=== PATIENT | male | born 2000 | race Caucasian/White ===

== ENCOUNTER 2025-04-06 08:16 | Emergency (ER) | payer BC, SELFPAY ==
--- OUTSIDE RECORDS SUMMARY | 2025-04-06 08:18 | XMS_ITS | Referral Summary ---
Author Organization [facility] Address [address] [place] [id number] Care Team Providers Care Machine Setter Supervisor Name Role Phone Flip Villa MD Primary Care Provider [phone] Allergies Active Allergy Reactions Criticality Noted Date Comments Penicillins Medications triamcinolone (KENALOG) 0.1 % creamIndication s:Contact dermatitis due to plant Apply topically 2 (two) times a day for 14 days 45 g 1 3 Active clobetasoL (TEMOVATE) 0.05 % creamIndication s:Irritant contact dermatitis due to plants, except food Apply topically 2 (two) times a day 60 g 4 Active Active Problems Problem Noted Date Diagnosed Date Acute sinusitis 02/04/2023 02/04/2023 Increased body mass index 02/04/20232022 Infected insect bite 02/04/2023 02/04/2023 Marijuana smoker, continuous 07/19/2019 Encounter for annual health examination 07/19/20 19 Dyspepsia 07/19/2019 Assessment & Plan (07/19/2019 3:49 PM CDT): Overall Condition: New Acute Problem Treatment: New Medication: Omeprazole Follow up PRN Consider for two weeks and then stop. Recommended extensive dietory changes. If symptoms persist, follow up. Generalized anxiety disorder 07/19/2019 Assessment & Plan (07/19/2019 3:51 PM CDT): Overall Condition New Diagnosis. Treatment: Referral: Clinical Psychologist: Patient to explore counselling at [facility] and followup. 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 Gender Identity Not on file Sexual Orientation Not on file Last Filed Vital Signs Vital Sign [place] Time Taken Comments Blood Pressure 104/76 01/04/2024 2:20 PM CDT Pulse 76 01/04/2024 2:20 PM CDT Temperature 36.4 C (97.5 F) 01/04/2024 2:20 PM CDT Respiratory Rate 14 01/04/2024 2:20 PM CDT Oxygen Saturation 99% 01/04/2024 2:20 PM CDT Inhaled Oxygen Concentration - - Weight 100.7 kg (222 lb) 01/04/2024 2:20 PM CDT Height 185.4 cm (6' 1) 01/04/2024 2:20 PM CDT Body Mass Index 29.29 01/04/2024 2:20 PM CDT Plan of Treatment Not on file Insurance [facility] CHOICE PLUS Care Teams Machine Setter Supervisor Relationship Specialty Start Date End Date Flip Villa MD PCP - General Family Medicine 07/19/19
--- OUTSIDE RECORDS SUMMARY | 2025-04-06 08:18 | XMS_ITS | Clinical Summary ---
Author Organization [facility] Address [address] [place] [id number] Care Team Providers Care Break Up Worker Name Role Phone Flip Villa MD Primary Care Provider [phone] Allergies Active Allergy Reactions Criticality Noted Date [...] Clinical Psychologist: Patient to explore counselling at [facility] and followup. and Recommended Therapeutic Lifestyle Modification Follow up in 1 month Family History Medical History Relation Name Comments Cancer Other 1 Family history of Cancer; Hypertension Other 2 Family history of Hypertension; Relation Name Status Comments Father Alive Mother Alive Other 1 Other 2 Social History Tobacco Use Types Packs/Day Years Used Date Smoking Tobacco: Every Day Cigarettes Smokeless Tobacco: Never Alcohol Use Standard Drinks/Week Comments Yes 0 (1 standard drink = 0.6 oz pur e alcohol) PHQ-2 Answer Date Recorded PHQ-2 Score 0 07/19/2019 Sex and Gender Information Value Date Recorded Sex Assigned at Not on file Legal 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 Gender Identity Not on file Sexual Orientation Not on file Obstetrics History Last Filed Vital Signs Vital Sign Reading [...] 01/04/2024 2:20 PM CDT Plan of Treatment Health Maintenance Due Date Last Done Comments Hepatitis C Screening 1998 Pneumococcal vaccine <65 (1 of 2 - PCV) 2017 DTaP/Tdap/Td Vaccine (7 - Td or Tdap) 04/21/2020 04/21/2010, 07/03/2002, 09/15/1999, Additional history exists Depression Screening 07/19/2020 07/19/2019 Regular Well Visit/Exam 18-64 07/19/2020 07/19/2019 Influenza Vaccine (#1) 2025 6, 09/21/2012, 06/29/2011, Additional history exists Hepatitis B Screening Completed 1998 , 1998, 1998 Varicella Vaccines Completed 04/21/2010, 06/18/1999 HPV Vaccines Completed 09/21/2012, 04/26, 03/09/2012 Insurance [facility] CHOICE PLUS Care Teams Break Up Worker Relationship Specialty Start Date End Date Flip Villa MD PCP - General Family Medicine 07/19/19
--- OUTSIDE RECORDS SUMMARY | 2025-04-06 08:18 | XMS_ITS | Clinical Summary ---
Author Organization [facility] Address [address] [place] [address] Phone Care Team Providers Care Bioinformatics Specialist Name Role Phone Jessica Wang PAC Primary Care Pro vider Hermelinda Figueredo APRN, PREPARATION CENTER COORDINATOR Unavailable Allergies Active Allergy Reactions Criticality Noted Date Comments Penicillin G Unknown 07/22/2019 As a child Medications Multiple Vitamin (MULTI-VITAMIN PO) Take by mouth. Active omeprazole (PriLOSEC) 20 MG CAPSULE DELAYED RELEASE Take 1 Capsule by mouth daily. 60 Capsule 2 04/04/2024 Active Active Problems No known active problems Family History Medical History Relation Name Comments Hypertension Father Hypertension Mother Cancer Paternal Grandfather Skin ca ncer that spread all over Relation Name Status Comments Father Alive Mother Alive Paternal Grandfather Social History Tobacco Use Types Packs/Day Years Used Date Smoking Tobacco: Never Smokeless Tobacco: Never Tobacco Cessation:Counseling Given: No Alcohol Use Standard Drinks/Week Comments Yes 5 (1 standard drink = 0.6 oz pur e alcohol) [facility] Utilities Answer Date Recorded In the past 12 months has [employer], gas, oil, or water company threatened to shut off services in your home? No 04/03/2024 Social Connection and Isolation Panel Answer Date Recorded In a typical week, how many times do you talk on the phone with family, friends, or neighbors? More than three times a week 04/03/2024 How often do you get togethe r with friends or relatives? Once a week 04/03/2024 How often do you attend chur ch or scientology services? Never 04/03/2024 Do you belong to any clubs o r organizations such as worship groups, unions, fraternal or athletic groups, or school groups? Yes 04/03/2024 How often do you attend meet ings of the clubs or organizations you belong to? Never 04/03/2024 Are you , , di vorced, , never , or living with a partner? Never 04/03/2024 AUDIT-C Answer Date Recorded Q1: How often do you have a drink containing alc ohol? Monthly or less 04/03/2024 Q2: How many drinks containi ng alcohol do you have on a typical day when you are drinking? 5 or 6 04/03/2024 Q3: How often do you have si x or more drinks on one occasion? Monthly 04/03/2024 Overall Financial Resource Strain (CARDIA) Answe r Date Recorded How hard is it for you to pa y for the very basics like food, housing, medical care, and heating? Not very hard 04/03/2024 PHQ-2 Answer Date Recorded Total Score - Questions 1-9 0 10/0 09/2020 [employer] - Occupational Stress Questionnaire Answer Date Recorded Do you feel stress - tense, restless, nervous, or anxious, or unable to sleep at night because your mind is troubled all the time - these days? Only a little 04/03/2024 Exercise Vital Sign Answer Date Recorde d On average, how many days pe r week do you engage in moderate to strenuous exercise (like a brisk walk)? 5 days 04/03/2024 On average, how many minutes do you engage in exercise at this level? 60 min 04/03/2024 Hunger Vital Sign Answer Date Recorded Within the past 12 months, y ou worried that your food would run out before you got the money to buy more. Never true 04/03/20 24 Within the past 12 months, t he food you bought just didn't last and you didn't have money to get more. Never true 04/03/2024 PRAPARE - Transportation Answer Date Re corded In the past 12 months, has l ack of transportation kept you from medical appointments or from getting medications? No 05/2024 In the past 12 months, has l ack of transportation kept you from meetings, work, or from getting things needed for daily living? No 04/03/2024 Housing Stability Vital Sign Answer [place] e Recorded In the last 12 months, was t here a time when you were not able to pay the mortgage or rent on time? No 04/03/2024 In the past 12 months, how m any times have you moved where you were living? 0 04/03/2024 At any time in the past 12 m [facility], were you homeless or living in a group home (including now)? No 04/03/2024 Sexually Active Control Partners Comments Yes Male Condom Female Sex and Gender Information Value Date Recorded Sex Assigned at Not on file Legal Sex Male 12:32 AM CDT Gender Identity Not on file Sexual Orientation Not on file Last Filed Vital Signs Vital Sign [place] Time Taken Comments Blood Pressure 126/73 10/10/2024 11:32 AM WOOD MACHINE CARVER Pulse 63 10/10/2024 11:32 AM WOOD MACHINE CARVER Temperature 37 C (98.6 F) 10/10/2024 11:32 AM WOOD MACHINE CARVER Respiratory Rate 23 10/10/2024 11:32 AM WOOD MACHINE CARVER Oxygen Saturation 100% 10/10/2024 11:32 AM WOOD MACHINE CARVER Inhaled Oxygen Concentration - - Weight 104.8 kg (231 lb) 10/03/2024 1:31 PM WOOD MACHINE CARVER Height 186.7 cm (6' 1.5) 10/03/2024 1:31 PM WOOD MACHINE CARVER Body Mass Index 30.06 10/03/2024 1:31 PM WOOD MACHINE CARVER Plan of Treatment Health Maintenance Due Date Last Done Comments SARS-COV-2 Immunization ( season) 2024 01/19/2021, 12/29/2020 Influenza Immunization (#1) 05/27/202503/2016, 09/21/2012, 06/29/2011, Additional history exists Respiratory Syncytial Virus (RSV) Immunization (Adult) (1 - 1-dose 75+ series) 2073 Hepatitis B Immunization Completed 999, 1998, 1998 DTaP/Tdap/Td Immunization Discontinued 2009, 07/03/2002, 09/15/1999, Additional history exists TdaP Immunization Completed 04/21/2010 Human Papillomavirus (HPV) Immunization Completed 09/21/2012, 05/11/2012, 03/09/2012 Meningococcal Immunization (ACWY) Completed 03/06/2015, 04/21/2010 Meningococcal B Immunization Discontinued 03/22/2016 Hepatitis C Virus (HCV) Screening Completed 08/09/2019 Pneumococcal Immunization Combined Aged Out No longer eligible based on patient's age to complete this topic Rotavirus Immunization Aged Out No lo nger eligible based on patient's age to complete this topic Procedures Procedure Name Priority Date/Time Associated Diagnosis Comments HEPATITIS PANEL ACUTE (AHP) Routine 08/09/2019 3:10 PM WOOD MACHINE CARVER Possible exposure to STD from Last 3 Months or Most Recently Relevant to Health Maintenance Results * HEPATITIS PANEL ACUTE (AHP) (08/09/2019 3:10 PM WOOD MACHINE CARVER) HEPATITIS A IGM ANTIBODY NON DETECTED NON DETECTED 08/09/2019 9:44 PM WOOD MACHINE CARVER [facility] Comment: IGM Antibodies to HAV not detected. Does not exclude early acute or recovered HAV infection. HEP B CORE AB (IGM) NON DETECTED NON DETECTED 08/09/2019 9:44 PM WOOD MACHINE CARVER [facility] Comment:IGM anti-HBC not det ected. Does not exclude the possibility of exposure to or infection with HBV. HEPATITIS B SURFACE ANTIGEN NON DETECTED NON DETECTED 08/09/2019 9:44 PM WOOD MACHINE CARVER [facility] Comment:A nonreactive test r esult does not exclude the possibility of exposure to or infection with Hepatitis B virus. A nonreactive test result in individuals with prior exposure to hepatitis B may be due to antigen levels below the detection limit of this assay or lack of antigen reactivity to the antibodies in this assay. hepatitis C antibody 0.27 <1 S/CO 08/09/2019 9:44 PM WOOD MACHINE CARVER [facility] Comment: Signal/Cutoff ratio < 0.79 is Nondetected Signal/Cutoff ratio 0.80-0.99 is Grayzone Signal/Cutoff ratio > 0.99 is Detected Supplemental assays are recommended if signal/cutoff ratio is >/=1.00. Signal/cutoff ratio result >/= 5.00 is 97% predictive of positivity for recombinant immunoblot assay (RIBA) and will be reported to the [place] Department of Public Health as required. Blood specimen (specimen) Venipuncture / Unknown 08/09/2019 3:10 PM WOOD MACHINE CARVER 08/09/2019 3:10 PM WOOD MACHINE CARVER us Jesús Capone PAC HEMATOLOGY ORDERABLES Fi nal Result [facility] [address] [place] [address], from Last 3 Months or Most Recently Relevant to Health Maintenance Insurance [facility] Care Teams Bioinformatics Specialist Relationship Specialty Start Date End Date Jessica Wang, DINA [address] [facility] [place] [address] PCP - General Physician Service Supervisor 06/26/21 Hermelinda Figueredo APRN, PREPARATION CENTER COORDINATOR [address] [place] [address] Nurse Practitioner Advanced Practice Nurse 09/12/24
--- OUTSIDE RECORDS SUMMARY | 2025-04-06 08:18 | XMS_ITS | Data Portability ---
Author Organization [facility] Address [address] [place] [address] Care Team Providers Care Pharmacologist Name Role Phone JOHANNA GORDILLO Primary Care Provider Assessment No assessment recorded. Plan of Treatment Reminders Order Date Submit Date Provider Last Modified By Organization Details Last Modified Time Details Appointments None recorded. Lab SARS CoV 2 RNA (COVID-19) , QL, packer denture-PCR, respirator y specimen - [facility] @ 215 2019 020 [facility] (Lab), [address] [place], [address], 0 15:25:10 Referral None recorded. Procedures None recorded. Surgeries None recorded. Imaging None recorded. Medication Orders prednisone 20 mg tablet 2016 017 [facility] #[id number], [address], [place], [place], [id number], 7 10:39:51 loratadine 10 mg tablet 2016 017 [facility] #[id number], [address], [place], [place], [id number], 7 10:39:51 Zithromax 250 mg tablet 2015 016 [facility] #[id number], [address], [place], [place], [id number], 7 10:39:04 Bactrim DS 800 mg-160 mg tablet 2014 015 [facility] #[id number], [address], [place], [place], [id number], 7 10:39:14 mupirocin 2 % topical ointment 2014 015 [facility] #[id number], [address], [place], [place], [id number], 7 10:39:07 Patient TargetsNo targets recorded. Patient Instructions Encounter Date Encounter Id Patient Instructions Last Modified By Organization Details Last Modified Time 04/16/2020 [id number] Reviewed the following recommendations: -Stay home and separate from others as much as possible. -Monitor your symptoms and seek medical attention for trouble breathing, persistent chest pain, confusion, or bluish lips or face. -Wear a mask if you must be around other people. -Wash your hands often for 20 seconds with soap and water and clean high-touch surfaces daily -You may discontinue home isolation if your symptoms are improving, it has been 10 days since symptoms started, and you have been fever free for at least 3 days. [email or web address] Not available 04/16/2020 14:38:14 Reason for Referral None Reported. Results Created Date Observation Date Name Description Value Unit Range Abnormal Flag Note LastModifiedBy Organization Detail LastModifiedTime 03/27/20 15 03/28/2015 CBC w/ auto diff WBC 5.1 x10e3 /uL 3.4-10 .8 Not Available [facility] ([facility]) [address] [place], [address], 03/28/2015 07:40:20 03/27/20 15 03/28/2015 CBC w/ auto diff RBC 5.23 x10e6 /uL 4.14-5 .80 Not Available [facility] ([facility]) [address] [place], [address], 03/28/2015 07:40:20 03/27/20 15 03/28/2015 CBC w/ auto diff hemoglobin 15.9 g/dL 12.6-1 7.7 Not Available [facility] ([facility]) [address] [facility], [place], [address], 03/28/2015 07:40:20 03/27/20 15 03/28/2015 CBC w/ auto diff hematocrit 47.8 % 37.5-5 1.0 Not Available [facility] ([facility]) [address] [facility], [place], [address], 03/28/2015 07:40:20 03/27/20 15 03/28/2015 CBC w/ auto diff MCV 91 fL 79-97 Not Available [facility] ([facility]) [address] [facility], [place], [address], 03/28/2015 07:40:20 03/27/20 15 03/28/2015 CBC w/ auto diff MCH 30.4 pg 26.6-3 3.0 Not Available [facility] ([facility]) [address] [facility], [place], [address], 03/28/2015 07:40:20 03/27/20 15 03/28/2015 CBC w/ auto diff MCHC 33.3 g/dL 31.5-3 5.7 Not Available [facility] ([facility]) [address] [facility], [place], [address], 03/28/2015 07:40:20 03/27/20 15 03/28/2015 CBC w/ auto diff RDW 13.0 % 12.3-1 5.4 Not Available [facility] ([facility]) [address] [facility], [place], [address], 03/28/2015 07:40:20 03/27/20 15 03/28/2015 CBC w/ auto diff platelets 257 x10e3 /uL 150-37 9 Not Available [facility] ([facility]) [address] [facility], [place], [address], 03/28/2015 07:40:20 03/27/20 15 03/28/2015 CBC w/ auto diff neutrophils 48 % Not Available [facility] ([facility]) [address] [place], [address], 03/28/2015 07:40:20 03/27/20 15 03/28/2015 CBC w/ auto diff lymphs 41 % Not Available [facility] ([facility]) [address] [place], [address], 03/28/2015 07:40:20 03/27/20 15 03/28/2015 CBC w/ auto diff monocytes 6 % Not Available [facility] ([facility]) [address] [place], [address], 03/28/2015 07:40:20 03/27/20 15 03/28/2015 CBC w/ auto diff eos 4 % Not Available [facility] ([facility]) [address] [place], [address], 03/28/2015 07:40:20 03/27/20 15 03/28/2015 CBC w/ auto diff basos 1 % Not Available [facility] ([facility]) [address] [place], [address], 03/28/2015 07:40:20 03/27/20 15 03/28/2015 CBC w/ auto diff immature cells PLACEMENT OFFICER Not Available [facility] ([facility]) [address] [place], [address], 03/28/2015 07:40:20 03/27/20 15 03/28/2015 CBC w/ auto diff neutrophils (absolute) 2.5 x10e3 /uL 1.4-7. 0 Not Available [facility] ([facility]) [address] [place], [address], 03/28/2015 07:40:20 03/27/20 15 03/28/2015 CBC w/ auto diff lymphs (absolute) 2.1 x10e3 /uL 0.7-3. 1 Not Available [facility] ([facility]) [address] [facility], [place], [address], 03/28/2015 07:40:20 03/27/20 15 03/28/2015 CBC w/ auto diff monocytes(ab solute) 0.3 x10e3 /uL 0.1-0. 9 Not Available [facility] ([facility]) [address] [facility], [place], [address], 03/28/2015 07:40:20 03/27/20 15 03/28/2015 CBC w/ auto diff eos (absolute) 0.2 x10e3 /uL 0.0-0. 4 Not Available [facility] ([facility]) [address] [facility], [place], [address], 03/28/2015 07:40:20 03/27/20 15 03/28/2015 CBC w/ auto diff baso (absolute) 0.0 x10e3 /uL 0.0-0. 3 Not Available [facility] ([facility]) [address] [facility], [place], [address], 03/28/2015 07:40:20 03/27/20 15 03/28/2015 CBC w/ auto diff immature granulocytes 0 % Not Available [facility] ([facility]) [address] [facility], [place], [address], 03/28/2015 07:40:20 03/27/20 15 03/28/2015 CBC w/ auto diff immature grans (abs) 0.0 x10e3 /uL 0.0-0. 1 Not Available [facility] ([facility]) [address] [facility], [place], [address], 03/28/2015 07:40:20 03/27/20 15 03/28/2015 CBC w/ auto diff NRBC PLACEMENT OFFICER Not Available [facility] ([facility]) [address] [facility], [place], [address], 03/28/2015 07:40:20 03/27/20 15 03/28/2015 CBC w/ auto diff hematology comments: PLACEMENT OFFICER Not Available [facility] ([facility]) [address] [place], [address], 03/28/2015 07:40:20 03/27/20 15 03/28/2015 CMP, serum or plasm a glucose, serum 89 mg/dL 65-99 Not Available [facility] ([facility]) [address] [place], [address], 03/28/2015 07:40:20 03/27/20 15 03/28/2015 CMP, serum or plasm a BUN 14 mg/dL 5-18 Not Available [facility] ([facility]) [address] [place], [address], 03/28/2015 07:40:20 03/27/20 15 03/28/2015 CMP, serum or plasm a creatinine, serum 0.98 mg/dL 0.76-1 .27 Not Available [facility] ([facility]) [address] [place], [address], 03/28/2015 07:40:20 03/27/20 15 03/28/2015 CMP, serum or plasm a BUN/creatini ne ratio 14 9-27 Not Available [facility] ([facility]) [address] [place], [address], 03/28/2015 07:40:20 03/27/20 15 03/28/2015 CMP, serum or plasm a sodium, serum 139 mmol/ L 134-14 4 Not Available [facility] ([facility]) [address] [facility], [address], 03/28/2015 07:40:20 03/27/20 15 03/28/2015 CMP, serum or plasm a potassium, serum 4.8 mmol/ L 3.5-5. 2 Not Available [facility] ([facility]) [address] [facility], [address], 03/28/2015 07:40:20 03/27/20 15 03/28/2015 CMP, serum or plasm a chloride, serum 99 mmol/ L 97-108 Not Available [facility] ([facility]) [address] [place], [address], 03/28/2015 07:40:20 03/27/20 15 03/28/2015 CMP, serum or plasm a carbon dioxide, total 25 mmol/ L 18-29 Not Available [facility] ([facility]) [address] [place], [address], 03/28/2015 07:40:20 03/27/20 15 03/28/2015 CMP, serum or plasm a calcium, serum 9.8 mg/dL 8.9-10 .4 Not Available [facility] ([facility]) [address] [place], [address], 03/28/2015 07:40:20 03/27/20 15 03/28/2015 CMP, serum or plasm a protein, total, serum 6.5 g/dL 6.0-8. 5 Not Available [facility] ([facility]) [address] [place], [address], 03/28/2015 07:40:20 03/27/20 15 03/28/2015 CMP, serum or plasm a albumin, serum 4.4 g/dL 3.5-5. 5 Not Available [facility] ([facility]) [address] [place], [address], 03/28/2015 07:40:20 03/27/20 15 03/28/2015 CMP, serum or plasm a globulin, total 2.1 g/dL 1.5-4. 5 Not Available [facility] ([facility]) [address] [place], [address], 03/28/2015 07:40:20 03/27/20 15 03/28/2015 CMP, serum or plasm a A/G ratio 2.1 1.1-2. 5 Not Available [facility] ([facility]) [address] [facility], [place], [address], 03/28/2015 07:40:20 03/27/20 15 03/28/2015 CMP, serum or plasm a bilirubin, total 0.8 mg/dL 0.0-1. 2 Not Available [facility] ([facility]) [address] [facility], [address], 03/28/2015 07:40:20 03/27/20 15 03/28/2015 CMP, serum or plasm a alkaline phosphatase, S 91 IU/L 71-186 Not Available [facility] ([facility]) [address] [facility] [place], [address], 03/28/2015 07:40:20 03/27/20 15 03/28/2015 CMP, serum or plasm a AST (SGOT) 29 IU/L 0-40 Not Available [facility] ([facility]) [address] [place], [address], 03/28/2015 07:40:20 03/27/20 15 03/28/2015 CMP, serum or plasm a ALT (SGPT) 22 IU/L 0-30 Not Available [facility] ([facility]) [address] [place], [address], 03/28/2015 07:40:20 03/27/20 15 03/28/2015 lipid panel , serum cholesterol, total 118 mg/dL 100-16 9 Not Available [facility] ([facility]) [address] [place], [address], 03/28/2015 07:40:20 03/27/20 15 03/28/2015 lipid panel , serum triglyceride s 89 mg/dL 0-89 Not Available [facility] ([facility]) [address] [place], [address], 03/28/2015 07:40:20 03/27/20 15 03/28/2015 lipid panel , serum HDL cholesterol 46 mg/dL >39 ACCOR DING TO ATP-I II GUIDE LINES , HDL-C >59 MG/DL IS CONSI DERED A NEGAT CARLOS RISK FACTO R FOR CHD. Not Available [facility] ([facility]) [address] [facility], [place], [address], 03/28/2015 07:40:20 03/27/20 15 03/28/2015 lipid panel , serum VLDL cholesterol tanner 18 mg/dL 5-40 Not Available [facility] ([facility]) [address] [facility], [place], [address], 03/28/2015 07:40:20 03/27/20 15 03/28/2015 lipid panel , serum LDL cholesterol calc 54 mg/dL 0-109 Not Available [facility] ([facility]) [address] [facility], [place], [address], 03/28/2015 07:40:20 03/27/20 15 03/28/2015 lipid panel , serum comment: PLACEMENT OFFICER Not Available [facility] ([facility]) [address] [facility], [place], [address], 03/28/2015 07:40:20 03/27/20 15 03/28/2015 lipid panel , serum T. chol/HDL ratio 2.6 ratio _unit s 0.0-5. 0 T. CHOL/ HDL RATIO MEN WOMEN 1/2 AVG.R ISK 3.4 3.3 AVG.R ISK 5.0 4.4 2X AVG.R ISK 9.6 7.1 3X AVG.R ISK 23.4 11.0 Not Available [facility] ([facility]) [address] [facility], [place], [address], 03/28/2015 07:40:20 03/27/20 15 03/28/2015 vitam in D, 25-hy droxy , total , serum vitamin D, 25-hydroxy 39.8 NG/mL 30.0-1 00.0 VITAM IN D DEFIC IENCY HAS BEEN DEFIN ED BY THE INSTI TUTE OF MEDIC INE AND AN ENDOC RINE SOCIE TY PRACT ICE GUIDE LINE A LEVEL OF SERUM 25-OH VITAM IN D LESS THAN 20 NG/ML (1,2) . THE ENDOC RINE SOCIE TY WENT ON TO [facility] ER DEFIN E VITAM IN D INSUF FICIE NCY A LEVEL BETWE EN 21 AND 29 NG/ML (2). 1. IOM (INST ITUTE OF MEDIC INE). 2010. DIETA RY REFER ENCE INTAK ES FOR CALCI UM AND D. CLARK RILEY DC: [facility] . 2. LOUISA Nava MF, ODALYS LINARES NC, BISCH OFF-F ERRAR I GRIMM, ET AL. EVALU ATION , TREAT MENT, AND PREVE NTION OF VITAM IN D DEFIC IENCY : AN ENDOC RINE SOCIE TY CLINI TANNER PRACT ICE GUIDE LINE. JCEM. 2010; 96(7) :1911 -30. Not Available [facility] ([facility]) [address] [facility], [place], [address], 03/28/2015 07:40:21 04/16/20 20 04/16/2020 SARS CoV 2 RNA (COVI D-19) , QL, packer denture-P CR, respi rator y speci men sars - cov - 2 PCR NON DETECT ED mL Not Available [facility] (Lab) [address] [place], [address], 04/23/2020 15:25:10 04/16/20 20 04/16/2020 SARS CoV 2 RNA (COVI D-19) , QL, packer denture-P CR, respi rator y speci men covididph2 COMME NTS: A negat carlos resul t does not precl ude SARS- CoV-2 infec tion and shoul d not be used as the sole basis for treat ment or other patie nt manag ement decis ions. Negat carlos resul ts must be combi casa with clini tanner obser vatio ns, patie nt histo ry, and epide miolo gical infor matio n Perfo rmanc e clara cteri stics for the TaqPa th COVID -19 Combo , Real- time PCR Diagn ostic test have been deter mined by the Therm oFish erasto escalera and are incor porat ed as part of the Emerg ency Use Autho rizat ion. Not Available [facility] (Lab) [address] [place], [address], 04/23/2020 15:25:10 04/16/20 20 04/16/2020 SARS CoV 2 RNA (COVI D-19) , QL, packer denture-P CR, respi rator y speci men covididph3 Provi zachary and patie nt fact sheet s are avail able at: https ://ww w.fda .gov/ medic al-de vices /tammy gency -situ ation s-med ical- devic es/em ergen -us e-aut horiz ation s#cor onavi rus20 19 Not Available [facility] (Lab) [address] [facility], [place], [address], 04/23/2020 15:25:10 04/16/20 20 04/16/2020 SARS CoV 2 RNA (COVI D-19) , QL, packer denture-P CR, respi rator y speci men covididph4 Perfo rmed at: [facility] C [facility] [employer] atori es [address] [place] [address] [phone] CLIA No. [id number] Not Available [facility] (Lab) [address] [place], [address], 04/23/2020 15:25:10 Result Notes None recorded. Problems Name Problem SNOMED Code Status Onset Date Resolution Date Notes Provider Name and Address Organization Details Recorded Time Increased body mass index 53292859 Active Johanna Gordillo MD Attn: Manfred ring,[address] [facility], [place], [address], [place] - [facility] 6 12:36:17 Infected insect bite 025610227 Active LENA [place], [place] - [facility] 6 11:20:20 Acute sinusitis 45762686 Active Wendie Brody MA null, [place] - [facility] 6 11:20:20 Problem Notes None recorded. Medical Equipment None Reported. Allergies Allergen ID Allergen Name Allergen Category Reaction Reaction Severity Criticality Documentation Date Start Date Code Code System Note Provider Name and Address Organization Details Recorded Time 45512 Penicilli n Not available Not available Not available Not available 03/06/2015 73651 RxNorm Wendie LENA [place], [place] - [facility] 5 14:26:42 Medications Name Sig Start Date Stop Date Status Note LastModified by Organization Details LastModified Time cyclobenzap rine 10 mg tablet active Not Available Not Available Not Available clindamycin HCl 300 mg capsule 03/18 completed Not Available Not Available Not Available azithromyci n 250 mg tablet Take 2 tablets on day 1, then 1 tablet on days 2-5. 03/18 completed Not Available Not Available Not Available prednisone 20 mg tablet Take 2 tablets twice a day by oral route for 5 days. 2016 active Not Available Not Available Not Avai lable sulfamethox azole 800 mg-trimetho prim 160 mg tablet Take 1 tablet every 12 hours by oral route for 7 days. 03/18 completed Not Available Not Available Not Available oxycodone-a cetaminophe n 5 mg-325 mg tablet 03/18 completed Not Available Not Available Not Available hydrocortis one 2.5 % topical cream with perineal applicator active Not Available Not Available N ot Available tobramycin 0.3 % eye drops 03/18 completed Not Available Not Available Not Available mupirocin 2 % topical ointment Apply by topical route to affected areas TID for 7 days. 03/18 completed Not Available Not Available Not Available methylpredn isolone 4 mg tablets in a dose pack active Not Available Not Available Not Available loratadine 10 mg tablet Take 1 tablet every day by oral route for 14 days. 2016 active Not Available Not Available Not Avai lable Vitals Date Recorded Heart rate Respiratory rate Body temperature Body mass index (BMI) Body weight Body height Systolic And Diastolic Provider Name and Address Organization Details Last Updated DateTime 6 72 /min 16 /min 98.1 [degF] 27.3 kg/m2 67498.0 6637 g 182.88 cm 114/60 mm[Hg] LENA Correa - [facility] 6 14:58:43 Date Recorded Respiratory rate Body weight Body height Body temperature Heart rate Body mass index (BMI) Systolic And Diastolic Provider Name and Address Organization Details Last Updated DateTime 5 16 /min 13571.1 23696 g 184.15 cm 98 [degF] 68 /min 26 kg/m2 122/68 mm[Hg] Wendie Brody MA [facility] 5 12:17:45 Date Recorded Body height Body mass index (BMI) Body weight Heart rate Respiratory rate Body temperature Systolic And Diastolic Provider Name and Address Organization Details Last Updated DateTime 7 183.52 cm 30.8 kg/m2 418784. 86 g 72 /min 16 /min 97.4 [degF] 128/64 mm[Hg] Ellie Reinoso MA [facility] 7 10:24:28 Date Recorded Body mass index (BMI) Heart rate Body weight Respiratory rate Body temperature Body height Systolic And Diastolic Provider Name and Address Organization Details Last Updated DateTime 6 29.6 kg/m2 72 /min 39352.2 26182 g 16 /min 98.4 [degF] 182.88 cm 114/66 mm[Hg] Jeanna Benitez MA [facility] 6 11:22:24 Social History Question Answer Notes LastModified by Organizat ion Details LastModified Time Tobacco Smoking Status Never Smoker Wendie Brody MA [facility], [facility] 03/06/2015 14:26:42 Animal Exposure? Yes Dogs Informat ion not available 03/06/2015 Do You Wear A Helmet When Biking? No Information not available 03/06/2015 What Is Your Level Of Caffeine Consumption? Occasional Information not available 03/06/2015 What Type Of Loom Fixer Helper Do You Use? None Information not available 03/06/2015 What Type Of Diet Are You Following? REGULAR Information not available 03/06/2015 Have There Been Any Changes To Your Family Or Social Situation? No Information not available 03/06/2015 Are There Any Guns Present In Your Home? No Information not available 03/06/2015 What Is Your Home Situation? Both Parents Information not available 03/06/2015 Do You Use Insect Repellent Routinely? Yes Information not available 03/06/2015 Car Seat Type Or Seat Belt? Seat Belt Information not available 03/06/2015 Parent Involvement? Both Parents Involved Information not available 03/06/2015 Riding In Car Front Seat? Yes Information not available 03/06/2015 What Is Your Parents' Marital Status? Information not available 03/06/2015 Pool Exposure Yes Information not available 03/06/2015 Do You Have Any Siblings? 1 Sister Information not available 03/06/2015 Do You Have Smoke And Carbon Monoxide Detectors In Your Home? Yes Information not available 03/06/2015 Are You Passively Exposed To Smoke? No Information not available 03/06/2015 What Types Of Sporting Activities Do You Participate In? Basketball, Football, Track Information not available 03/06/2015 Do You Use Sunscreen Routinely? Yes Information not available 03/06/2015 Year In School College Informatio n not available 03/18/2017 Sex: Male Functional Status Question Answer Note LastModified by Organizat ion Details LastModified Time What is your exercise level? Occasional Information not available 03/06/2015 Mental Status Question Answer Note LastModified by Organization D etails LastModified Time Are you or have you been involved with bullying? No Information not available 03/06/2015 Family History Relationship Description Onset Age of this Age Resolved Age Notes LastModified by Organization Details LastModified Time Mother Hypertensive disorder sattebery Not available 2015 11:20:20 Father Hypertensive disorder sattebery Not available 2015 11:20:20 Medical History Condition Response Blood Diseases N Ear or Hearing Problems N Thyroid Problems N Depression N Developmental or Behavioral Disorders N Skin Problems N Premature N Anemia N Constipation N Diabetes N Anxiety Disorder N Muscle, Joint, or Bone Problems N Bedwetting N Vision or Eye Problems N Seizures/Epilepsy N Heart Problems/Murmur N Head Injury/Concussion N Cancer N Allergies N Asthma N ADHD N Bladder or Kidney Problems N Headaches N Chicken Pox N Autism Spectrum Disorder (ASD) N Immunizations Vaccine Type Date Status Note Provider Nam e and Address Organization Details Recorded Time meningococcal B, OMV 6 completed Not Available [facility] 10/13/2019 02:33:25 DTaP 2 completed Wendie Brody [place] null, [place] - [facility] 03/05/2015 11:04:37 DTaP 9 completed Wendie [place] [facility] 03/05/2015 11:04:37 DTaP 9 completed Wendie [place] [facility] 03/05/2015 11:04:37 DTaP 8 completed Wendie [place] [facility] 03/05/2015 11:05:02 DTaP 9 completed Wendie [place] [facility] 03/05/2015 11:04:37 Hib, unspecified formulation 9 completed Wendie [place] [facility] 03/05/2015 11:05:02 Hib, unspecified formulation 8 completed Wendie [place] [facility] 03/05/2015 11:05:02 Hib, unspecified formulation 9 completed Wendie [place] [facility] 03/05/2015 11:05:02 Hep A, ped/adol, 2 dose 0 completed Wendie [place] [facility] 03/05/2015 11:05:22 Hep A, ped/adol, 2 dose 7 completed Wendie [place] [facility] 03/05/2015 11:05:22 Hep B, adolescent or pediatric 8 completed Wendie [place] [facility] 03/05/2015 11:05:43 Hep B, adolescent or pediatric 8 completed Wendie [place] [facility] 03/05/2015 11:05:43 Hep B, adolescent or pediatric 9 completed Wendie Brody, [place] [facility] 03/05/2015 11:05:43 HPV, unspecified formulation 2 completed Wendiedarlene Sylvesterslava [place] [facility] 03/05/2015 11:06:06 HPV, unspecified formulation 2 completed Wendie Sylvesterslava [place] [facility] 03/05/2015 11:06:06 HPV, unspecified formulation 2 completed Wendiedarlene Sylvesterslava [place] [facility] 03/05/2015 11:06:06 influenza, unspecified formulation 1 completed Wendiedarlene SylvesterLENA [place] [facility] 03/05/2015 11:07:02 influenza, unspecified formulation 0 completed Wendie Sylvesterslava [place] [facility] 03/05/2015 11:07:02 influenza, unspecified formulation 2 completed Wendiedarlene Sylvesterslava [place] [facility] 03/05/2015 11:07:02 MMR 2 completed Wendiedarlene Sylvesterslava [place] [facility] 03/05/2015 11:07:48 MMR 9 completed Wendie Sylvesterslava [place] [facility] 03/05/2015 11:07:48 meningococcal MCV4, unspecified formulation 0 completed Wendie Sylvesterslava [place] [facility] 03/05/2015 11:08:01 IPV 9 completed Wendiedarlene Sylvesterslava [place] [facility] 03/05/2015 11:08:25 IPV 2 completed Wendiedarlene Sylvesterslava [place] [facility] 03/05/2015 11:08:25 IPV 8 completed Wendiedarlene SylvesterLENA [place] [facility] 03/05/2015 11:08:25 IPV 9 completed Wendie NgaLENA [place] [facility] 03/05/2015 11:08:25 Tdap 0 completed Wendie [place] [facility] 03/05/2015 11:08:41 varicella 0 completed Wendie LENA [place], [place] - [facility] 03/05/2015 11:08:57 varicella 9 completed LENA [place], [place] - [facility] 03/05/2015 11:08:57 Meningococcal MCV4O 5 completed Not Available [facility]ly [facility] 10/13/2019 02:51:04 Influenza, split virus, quadrivalent, preservative 6 completed Not Available [facility] 10/13/2019 02:32:11 Past Encounters Encounter ID Performer Location Encounter Start Date Encounter Closed Date Diagnosis/Indication Diagnosis SNOMED-CT Code Diagnosis ICD10 Code Diagnosis Note [id number] MD [facility] ([facility]) [address] [place] [address] 03/06/2015 14:16:26 03/06/2015 17:46:17 Well child [id number] Anticipato ry guidance given. Menveo given. Increased body mass index [id number] Will check screening labs. Discussed diet changes including eliminatin g sports drinks, increasing fruits, vegetables , whole grains and drinking 6-8 glasses of water/day. Pt. is active in sports. [id number] MD [facility] (Peds) [address] [place] [address] 03/13/2015 11:52:37 03/13/2015 16:59:03 Infected insect bite [id number] Appears to be infected insect bite. Will start on po and topical abx. Told to bekah area of erythema and induration and notify if spreads or develops high fever. [id number] MD [facility] (Peds) [address] [place] [address] 10/02/2015 14:37:37 10/02/2015 17:57:30 Acute sinusitis [id number] J01.90 Will start on z-myke. Active or passive immunization [id number] Z23 [id number] MD [facility] (Peds) [address] [place] [address] 03/22/2016 11:13:14 03/22/2016 16:36:56 Well child [id number] Z00.129 PHQ-9 wnl. Growth wnl. Anticipato ry guidance given. Bexsero given. Increased body mass index 79196564 Z68.41 Screening labs done in past wnl. Discussed diet changes including eliminatin g sports drinks, increasing fruits, vegetables , whole grains and drinking 6-8 glasses of water/day. Pt. is active in sports and is very muscular in build. Increased muscle mass may be accounting somewhat for higher BMI as well. [id number] [facility] ([facility] [address] [place] [address] 03/18/2017 10:08:40 03/23/2017 08:45:39 Contact dermatitis caused by urushiol from [facility] [id number] L25.5 start benadryl prn itch and loratadine daily [id number] Beckie Valverde MD [facility] [address] [place] [address] 04/16/2020 12:59:10 04/17/2020 07:15:09 Exposure to SARS-CoV-2 [id number] Z20.828 Health Concerns Section Related Observation LastModified by Organization Detai ls LastModified Time None Recorded Concern Status LastModified by Organization Details LastModified Time None Recorded Advance Directives Directive None Recorded Payers Insurance Date Sequence Insurance Name Policy Number Policy Weathers Covered Member ID Weathers Member ID Guarantor Name 09/03/2020 2 [facility] [id number] Vini Chau [id number] Vini Chau 06/27/2020 1 [facility] OPEN ACCESS (POS) [id number] Vini Chau [id number] Vini Chau 06/27/2020 1 [facility] (PPO) Vini Chau [id number] Vini Chau Notes Date Note Type Note Provider Name and Address Organization Details Recorded Time 5 text/html Sores first noted 4 days ago on R forearm. Other lesions occurred 1-2 days later. Some itching. Has been using triple abx ointment. Pt. has been outside for football. Some pus was oozing out of larger lesion. No warmth and no pain. No new meds or lotions. Johanna Gordillo MD Attn: Accounting,[address] [facility], [place], [address], [facility] 03/23/2015 17:26:36 6 text/html NO h/o asthma. No h/o allergies. Lot of nasal congestion. Coughing alot, worse at night. Pt. feeling sinus pressure and headache. No fevers. Johanna Gordillo MD Attn: Accounting,[address] [place], [address], [facility] 10/02/2015 17:09:22 6 text/html Here for well child. No concerns. Planning to play basketball and football. No concussions. No chest pain, no SOB with sports. No h/o asthma. Johanna Gordillo MD Attn: Accounting,[address] [place], [address], [facility] 03/22/2016 12:36:49 7 text/html C/o of itchy rash on feet for the past week. Suspects he has poison luis. Has tried topical steriod cream with little change. Colten Gutierrez MD Attn: Accounting,[address] [place], [address], [facility] 03/18/2017 10:40:43 0 text/html COVID ScreeningReported bypatient.Associated Symptoms:coughCOVID-19 Symptoms January 2020Reported bypatient.COVID-19 Signs and Symptomscough resolved; fever resolved; shortness of breath resolved; chills resolved; repeated shaking with chills resolved; muscle pain resolved; headache resolved; sore throat resolved; loss of taste or smell resolved; vomiting or diarrhea resolved; fatigue resolved; anorexia resolved Contacts and Exposureclose contact with a confirmed or suspected case of COVID-19; lives in the same household as a person with COVID-19 Associated Symptoms:no sputum production; no wheezing; no runny nose; no vomiting; no diarrhea; no body aches; no nausea; no change in mental status; no hypotension; no tachycardia pt admits to a cough 1 week ago ESAU HAIRSTON NP Attn: Accounting,[address] [facility], [place], [address], [facility] 04/16/2020 14:38:42
--- NOTE | 2025-04-06 08:27 | ED_ITS ---
HPI - General Adult General Chief complaint: Skin/Abscess/Foreign Body Stated complaint: poison izabel Time Seen by Provider: 04/06/25 08:27 Source: patient Mode of arrival: ambulatory Limitations: no limitations History of Present Illness HPI narrative: 24-year-old male patient presents to the [facility] with complaints of a rash to bilateral arms, abdomen, groin and face for the past 2-3 days. Patient states he thinks it is poison izabel and states he has had poison izabel before the past. 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 Patient denies taking anything oral besides Tylenol and states he has been putting some calamine lotion to the area to help with itching. Related Data Allergies Allergy/AdvReac Type Severity Reaction Status Date / Time Penicillins Allergy Unknown Verified 04/06/25 08:26 Review of Systems Review of Systems: CONSTITUTIONAL: Denies fever, chills, or sweats. EYES: Denies visual changes, redness, or discharge. ENT: Denies rhinorrhea, congestion, sore throat, or otalgia. CARDIOVASCULAR: Denies chest pain, palpitations, or edema. RESPIRATORY: Denies cough or dyspnea. GASTROINTESTINAL: Denies abdominal pain, nausea, vomiting, or diarrhea. GENITOURINARY: Denies dysuria or hematuria. SKIN: Positive rash with itching to bilateral upper extremities, abdomen, left eye and groin area MUSCULOSKELETAL: Denies back pain, joint pain, or myalgia. NEUROLOGIC: Denies headache, numbness, or weakness. PSYCHIATRIC: Denies anxiety or depression. [facility] Past Medical History Medical History (Updated 04/06/25 @ 08:40 by BEBE Garrison) No significant past medical history Comments At the time of my signature I agree with nursing past medical history, surgical, social, and family history. There is no relevant family history pertinent to the presenting complaint. Exam Narrative: GENERAL: Well-appearing, well-nourished, and in no acute distress. HEAD: Normocephalic, atraumatic. EYES: PERRLA and EOMI. ENT: Nares clear, no rhinorrhea or epistaxis. Mucous membranes moist. posterior pharynx with no erythema, tonsillar enlargement, exudates or lesions. NECK: Supple. No lymphadenopathy. No stridor noted on auscultation CHEST: Clear to auscultation. No respiratory distress. HEART: Regular rate and rhythm. No murmur heard. Normal peripheral pulses. ABDOMEN: Soft, nontender, nondistended, normal active bowel sounds. EXTREMITIES: Normal range of motion. No edema. SKIN: Warm, dry, patient has and erythemic rash with some areas of bolus pockets to the left arm the area does appear to be macular papular and noted to bilateral arms, around the ocular portion of the left eye, the left side of the left lower abdomen and the groin area( per patient). NEURO: No focal deficits. Alert and oriented x3. Course Course Level of Care: Express Care Visit Vital Signs Vital signs: Vital Signs Temperature 36.6 C 04/06/25 08:28 Pulse Rate 70 04/06/25 08:28 Respiratory Rate 18 04/06/25 08:28 Blood Pressure 137/83 04/06/25 08:28 Pulse Oximetry 100 04/06/25 08:28 Oxygen Delivery Room Air 04/06/25 08:28 Temperature 36.6 C 04/06/25 08:28 Pulse Rate 70 04/06/25 08:28 Respiratory Rate 18 04/06/25 08:28 Blood Pressure 137/83 04/06/25 08:28 Pulse Oximetry 100 04/06/25 08:28 Oxygen Delivery Room Air 04/06/25 08:28 Vital signs reviewed. The patient has been informed that they may have pre-hypertension or Hypertension based on a BP reading in the department. I recommend that the patient call the primary care provider listed on their discharge instructions or a physician of their choice this week to arrange follow up for further evaluation of possible pre-hypertension or Hypertension Medical Decision Making MDM Narrative Medical decision making narrative: plan of care for patient is to discharge home with some oral steroids due to rash being very systematic. Discussed with patient he can continue using the calamine lotion but highly recommend that he does not use it to the groin or face area. Highly recommend that he take some [id number] antihistamine such as Zyrtec to help with the itching and histamine response. Patient is requesting a work note for today and tomorrow that was provided as per requested. Patient verbalized understanding denies any other questions or concerns at this time. Differential Diagnosis Differential Diagnosis: Differential diagnosis: Contact dermatitis, poison izabel, poison sumac, psoriasis, eczema, allergic reaction, drug reaction, scabies, tinea syphilis, lung disease, viral exanthema, pityriasis, erythema multiforme. Vital Signs Vital Signs: Vital Signs Temperature 36.6 C 04/06/25 08:28 Pulse Rate 70 04/06/25 08:28 Respiratory Rate 18 04/06/25 08:28 Blood Pressure 137/83 04/06/25 08:28 Pulse Oximetry 100 04/06/25 08:28 Oxygen Delivery Room Air 04/06/25 08:28 Temperature 36.6 C 04/06/25 08:28 Pulse Rate 70 04/06/25 08:28 Respiratory Rate 18 04/06/25 08:28 Blood Pressure 137/83 04/06/25 08:28 Pulse Oximetry 100 04/06/25 08:28 Oxygen Delivery Room Air 04/06/25 08:28 Critical Care Time Critical Care Time Critical Care Time: No Discharge Plan Discharge Clinical Impression: Allergic contact dermatitis due to plant Patient Disposition: Home Condition: Stable Instructions: Antibiotic Form, Contact Dermatitis (ED), Poison Izabel (ED) Additional Instructions: Wash the area with soap and cool water only. Use skin creams/lotion or anti-itch medicine to reduce itchiness Avoid scratching when possible to prevent worsening of the condition and disruption of the skin that could lead to bacterial infection To relieve itching, place a cool washcloth or some ice over the area that itches, rather than scratching Follow up with primary care provider or seek ER if you have trouble breathing, become hoarse, or start wheezing, develop belly cramps, vomiting or feel dizzy. Patient Language: Malian Prescriptions: New prednisone 10 mg tablets,dose pack See Rx Instructions .ROUTE .COMPLEX Qty: 48 0RF Rx Instructions: 50 mg x 3 days, 40 mg x 3 days, 30 mg x 3 days, 20 mg x 3 days, 10 mg x 3 days Follow-up/Referrals: Kathleen,JERRI Lopez [Primary Care Provider] - Stand Alone Forms: Work/School Release IP Time of Disposition: 08:38
[2025-04-06 08:28] VITALS: BP 137/83; PULSE 70; RESP 18; TEMP 36.6; O2SAT 100
== END 2025-04-06 08:41 | disposition home or self-care (01) ==
PROVIDERS: Emergency Provider Nurse Practitioner Family; PCP Physician Assistant
DX: L23.7 Allergic contact dermatitis due to plants, except food (principal)
CPT/HCPCS: 99203; G0463